=== PATIENT | female | born 1950 | race African-American/Black ===

== ENCOUNTER 2025-09-13 16:59 | Emergency (ER) | payer MEDICARE ==
[2025-09-13 17:43] LABS: #Basophils 0.06 10x3/uL (0.0-0.2); #Eosinophils 0.17 10x3/uL (0.0-0.7); #Monocytes 0.55 10x3/uL (0.11-0.59); #Neutrophils 4.31 10x3/uL (1.40-6.50); %Basophils 0.8 % (0.0-1.0); %Eosinophils 2.4 % (0.0-10.0); %Lymphocytes 28.8 % (21.0-51.0); %Monocytes 7.6 % (0.0-10.0); %Neutrophils 59.6 % (42.0-75.0); Hematocrit 42.8 % (36.0-47.0); Hemoglobin 13.3 g/dL (12.0-16.0); Mean Corpuscular Hemoglobin 29.0 pg (27.0-31.0); Mean Corpuscular Volume 93.2 fL (78.0-98.0); Platelet Count 276 10x3/uL (130-400); Red Blood Cell (RBC) Count 4.59 mill/uL (4.20-5.40); White Blood Cell (WBC) Count 7.23 10x3/uL (4.8-10.8)
[2025-09-13 17:57] LABS: ALT (SGPT) 42 U/L (Less than 34); AST (SGOT) 71 U/L (11-34); Albumin 3.5 g/dL (3.1-4.5); Alkaline Phosphatase 71 U/L (40-110); Anion Gap 11 mmol/L (10-20); BUN (Urea Nitrogen) 11 mg/dL (9.8-20.1); Bilirubin, Total 0.3 mg/dL (0.3-1.2); Calc. Creatinine Clearance 0 mL/min (70-130); Calcium 9.3 mg/dL (7.8-10.44); Carbon Dioxide 27 mmol/L (23-31); Chloride 107 mmol/L (98-107); Globulin 4.1 g/dL (2.4-3.5); Glucose 88 mg/dL (83-110); Lipase 23 U/L (8-78); Potassium 4.2 mmol/L (3.5-5.1); Sodium 141 mmol/L (136-145)
[2025-09-13] MEDS ORDERED: Furosemide 40 MG (4 mL) VIAL ONE (18:43)
[2025-09-14] MEDS ORDERED: Enoxaparin 100 MG (1 mL) SYRINGE ONE (00:36)
[2025-09-14 01:24] LABS: INR-International Normal Ratio 1.1; PTT 32.1 sec (22.9-36.1); Prothrombin Time 13.9 sec (12.0-14.7)
== END 2025-09-14 10:25 | disposition short-term general hospital (02) ==
LOC: ERS 16:59
DX: R07.9 Chest pain, unspecified (principal); R79.89 Other specified abnormal findings of blood chemistry; E11.9 Type 2 diabetes mellitus without complications; I10 Essential (primary) hypertension; Z79.02 Long term (current) use of antithrombotics/antiplatelets; Z79.899 Other long term (current) drug therapy
CPT/HCPCS: 71045; 80053; 83690; 83880; 84484 ×2; 85025; 85610; 85730; 93005; J1650; J1940; 36415; 96372; 96374